=== PATIENT | male | born 1975 | race Caucasian/White ===

== ENCOUNTER 2020-07-28 14:05 | Emergency (ER) | payer SELFPAY ==
[2020-07-28] MEDS ORDERED: KETOROLAC 30 MG/ML INJ ONE (15:53)
[2020-07-28] MEDS ORDERED: LIDOCAINE 4% PATCH ONE (15:53)
--- NOTE | 2020-07-28 16:13 | RAD REPORT ---
EXAM DESCRIPTION: CT - Spine Lumbar Wo Con - 07/28/2020 4:00 pm CLINICAL HISTORY: PAIN, low back pain radiating to the lower extremities COMPARISON: None. TECHNIQUE: Thin section axial imaging of the lumbar spine was performed. Sagittal and coronal recon struction images were generated and reviewed. All CT scans are performed using dose optimization technique as appropriate and may include automated exposure control or mA/KV adjustment according to patient size. FINDINGS: Lumbar bodies are normal in height and alignment. No fracture changes are seen. There are no lytic, sclerotic or expansile bony changes identifiable. No paraspinal mass identifiable. Sacral a la are intact. No significant SI joint finding. Facet joint degenerative changes are mild. Central canal detail is inherently limited. No disc herniation confirmed. Patient probably has mild d isc bulge change at L3-4 and slightly more prominent at L4-5. No central spinal stenosis or significa nt foraminal stenosis at these levels. Patient may have mild lateral recess stenosis at the superior aspect L5. No significant disc finding at L5-S1. No pars defect. No suspicious skeletal muscle or soft tissue finding. IMPRESSION: No acute vertebral body finding. No disc herniation or central spinal stenosis. Disc bulge changes are present minimally at L3-4 and L 4-5. Patient likely has a mild lateral recess stenosis at L5. This is a minimal finding but could potentia lly explain radiculopathy given the absence of additional significant finding.
--- NOTE | 2020-07-28 16:50 | ER ---
Nurse's Notes [facility] Name: John Abdi Age: 44 yrs Sex: Male : 1975 Arrival Date: 07/28/2020 Time: 14:13 Bed 26 Private MD: Diagnosis: Low back pain;Radiculopathy, lumbosacral region Presentation: 07/28 14:16 Chief complaint: Patient states: low back pain that began 1 week ago. No known injury. ss Coronavirus screen: Client denies travel out of the [place] in the last 14 days. Ebola Screen: Patient denies exposure to infectious person. Patient denies travel to an Ebola-affected area in the 21 days before illness onset. Initial Sepsis Screen: Does the patient meet any 2 criteria? No. Patient's initial sepsis screen is negative. Does the patient have a suspected source of infection? No. Patient's initial sepsis screen is negative. Risk Assessment: Do you want to hurt yourself or someone else? Patient reports no desire to harm self or others. Onset of symptoms was July 21, 2020. 14:16 Method Of Arrival: Ambulatory ss 14:16 Acuity: JARED 4 ss Historical: - Allergies: 14:17 No Known Allergies; ss - Home Meds: 14:17 None [Active]; ss - PMHx: 14:17 None; ss - PSHx: 14:17 None; ss - Immunization history:: Adult Immunizations unknown. - Social history:: Smoking status: Patient reports use of chewing tobacco. Screenin:40 Abuse screen: Denies threats or abuse. Denies injuries from another. Nutritional kg screening: No deficits noted. Tuberculosis screening: No symptoms or risk factors identified. Fall Risk None identified. No fall in past 12 months (0 pts). No secondary diagnosis (0 pts). No IV (0 pts). Ambulatory Aid- None/Bed Rest/Nurse Assist (0 pts). Gait- Normal/Bed Rest/Wheelchair (0 pts) Mental Status- Oriented to own ability (0 pts). Total Carbone Fall Scale indicates No Risk (0-24 pts). Assessment: 15:38 General: Appears uncomfortable, Behavior is calm, cooperative, appropriate for age, kg quiet. Pain: Complains of pain in left low back Pain does not radiate. Pain currently is 6 out of 10 on a pain scale. at worst was 10 out of 10 on a pain scale. level that patient reports is acceptable is 3 out of 10 on a pain scale. Quality of pain is described as burning, dull, sharp, constant Pain began One week ago. Neuro: Level of Consciousness is awake, alert, obeys commands, Oriented to person, place, time, situation, Appropriate for age. 15:40 Cardiovascular: No deficits noted. Respiratory: No deficits noted. GI: No deficits kg noted. : No deficits noted. EENT: No deficits noted. Derm: No deficits noted. Musculoskeletal: Reports pain in left low back since one week ago. Pain is 6 out of 10 on a pain scale. Vital Signs: 14:17 BP 129 / 95; Pulse 98; Resp 16; Temp 97.6(TE); Pulse Ox 99% on R/A; Weight 99.79 kg; ss Height 5 ft. 11 in. (180.34 cm); Pain 8/10; 16:00 BP 133 / 100; Pulse 90; Resp 20; Pulse Ox 99% on R/A; kg 17:04 BP 152 / 90; Pulse 81; Resp 20 S; Pulse Ox 99% on R/A; kg 14:17 Body Mass Index 30.68 (99.79 kg, 180.34 cm) ss ED Course: 14:13 Patient arrived in ED. mr 14:17 Triage completed. ss 14:17 Arm band placed on left wrist. ss 15:22 Aron Su PA is PHCP. cp 15:22 Aron Espinal MD is Attending Physician. cp 15:27 Beth Cooney, NATHALIE is Primary Nurse. kg 15:41 Patient has correct armband on for positive identification. kg 16:00 CT Lumbar Spine Wo Con In Process Unspecified. EDMS 16:49 Samy Pastor MD is Referral Physician. cp 17:04 No provider procedures requiring assistance completed. Patient did not have IV access kg during this emergency room visit. Administered Medications: 15:37 Drug: Lidoderm 5 % (700 mg/patch) 1 patches {Note: Left lower back.} Route: Topical; kg Site: affected area; 17:06 Follow up: Response: No adverse reaction; Marked relief of symptoms kg 15:38 Drug: TORadol (ketorolac) 60 mg Route: IM; Site: left gluteus; kg 17:06 Follow up: Response: No adverse reaction; Marked relief of symptoms kg Outcome: 16:50 Discharge ordered by . flip 17:04 Discharged to home ambulatory. kg 17:04 Condition: improved 17:04 Discharge instructions given to patient, Instructed on discharge instructions, follow up and referral plans. Demonstrated understanding of instructions, follow-up care, medications, Prescriptions given X 4. 17:06 Patient left the ED. kg Signatures: Dispatcher [employer] Sherice Govea Shelby, RN RN Aron Saenz, UZAIR PA Beth Vazquez, RN RN kg
--- NOTE | 2020-07-28 16:50 | EDPHYS ---
Physician Documentation [facility] Name: John Abdi Age: 44 yrs Sex: Male : 1975 Arrival Date: 07/28/2020 Time: 14:13 Bed 26 Private MD: ED Physician Aron Espinal HPI: 07/28 15:30 This 44 yrs old Male presents to ER via Ambulatory with complaints of Back cp Pain. 15:30 The patient presents with pain that is acute, with no known mechanism of injury. cp 15:30 The symptoms are located in the low back. Onset: The symptoms/episode began/occurred 1 cp week(s) ago. intermittent radiation of pain down back left leg. Associated signs and symptoms: Pertinent negatives: abdominal pain, constipation, fever, incontinence, numbness, tingling, urinary retention, weakness. The problem was sustained from unknown cause. Modifying factors: the patient symptoms are aggravated by bending, sitting. Severity of symptoms: in the emergency department the symptoms are unchanged, despite home interventions. Historical: - Allergies: 14:17 No Known Allergies; ss - Home Meds: 14:17 None [Active]; ss - PMHx: 14:17 None; ss - PSHx: 14:17 None; ss - Immunization history:: Adult Immunizations unknown. - Social history:: Smoking status: Patient reports use of chewing tobacco. ROS: 15:35 Constitutional: Negative for body aches, chills, fever, poor PO intake. cp 15:35 Eyes: Negative for injury, pain, redness, and discharge. cp 15:35 ENT: Negative for ear pain, sore throat. 15:35 Cardiovascular: Negative for chest pain. 15:35 Respiratory: Negative for cough, shortness of breath. 15:35 Abdomen/GI: Negative for abdominal pain, nausea, vomiting, and diarrhea, bowel incontinence. 15:35 Back: Positive for pain at rest, pain with movement, of the lumbar area and left low back. 15:35 : Negative for urinary symptoms, bladder incontinence, testicular pain 15:35 Neuro: Negative for altered mental status, headache, numbness, weakness. 15:35 All other systems are negative. Exam: 15:40 Constitutional: The patient appears in no acute distress, alert, awake, non-toxic, well cp developed, well nourished, uncomfortable. 15:40 Head/Face: Normocephalic, atraumatic. cp 15:40 Eyes: Periorbital structures: appear normal, Conjunctiva: normal, no exudate, no injection, Sclera: no appreciated abnormality, Lids and lashes: appear normal, bilaterally. 15:40 ENT: External ear(s): are unremarkable, Nose: is normal, Mouth: Lips: moist, Oral mucosa: moist, Posterior pharynx: Airway: no evidence of obstruction, patent. 15:40 Neck: ROM/movement: is normal, is supple, without pain, no range of motions limitations. 15:40 Chest/axilla: Inspection: normal, Palpation: is normal, no crepitus, no tenderness. 15:40 Cardiovascular: Rate: normal. 15:40 Respiratory: the patient does not display signs of respiratory distress, Respirations: normal, no use of accessory muscles, no retractions, labored breathing, is not present. 15:40 Abdomen/GI: Inspection: abdomen appears normal, Palpation: abdomen is soft and non-tender, in all quadrants. 15:40 Back: pain, that is moderate, of the lumbar area and left low back, ROM is painful, with all movement, Straight leg raises: of both lower extremities does not illicit pain. 15:40 Neuro: Motor: moves all fours, strength is normal, Sensation: is normal, Gait: is steady, Deep tendon reflexes are 2+ (normal) in the right patellar, right Achilles, left patellar and left Achilles. Vital Signs: 14:17 BP 129 / 95; Pulse 98; Resp 16; Temp 97.6(TE); Pulse Ox 99% on R/A; Weight 99.79 kg; ss Height 5 ft. 11 in. (180.34 cm); Pain 8/10; 16:00 BP 133 / 100; Pulse 90; Resp 20; Pulse Ox 99% on R/A; kg 17:04 BP 152 / 90; Pulse 81; Resp 20 S; Pulse Ox 99% on R/A; kg 14:17 Body Mass Index 30.68 (99.79 kg, 180.34 cm) ss MDM: 15:22 Patient medically screened. cp 16:00 Differential diagnosis: Ureterolithiasis vertebral fracture, sciatica, cauda equina, cp spinal stenosis. 16:50 Counseling: I had a detailed discussion with the patient and/or guardian regarding: the cp presence of at least one elevated blood pressure reading (>120/80) during this emergency department visit, radiology results, the need for outpatient follow up, a neurosurgeon, to return to the emergency department if symptoms worsen or persist or if there are any questions or concerns that arise at home. 16:50 Response to treatment: the patient's symptoms have markedly improved after treatment, cp VSS. Pain improved. Will discharge to home with return precautions given worsening pain, saddle anesthesia, bowel/bladder incontinence. 16:55 Data reviewed: vital signs, nurses notes, radiologic studies. cp 16:55 ED course: No results found on inquiry of [employer] prescription monitor program website. cp 07/28 15:26 Order name: CT Lumbar Spine Wo Con; Complete Time: 16:15 cp 07/28 16:16 Interpretation: Report reviewed. cp Administered Medications: 15:37 Drug: Lidoderm 5 % (700 mg/patch) 1 patches {Note: Left lower back.} Route: Topical; kg Site: affected area; 17:06 Follow up: Response: No adverse reaction; Marked relief of symptoms kg 15:38 Drug: TORadol (ketorolac) 60 mg Route: IM; Site: left gluteus; kg 17:06 Follow up: Response: No adverse reaction; Marked relief of symptoms kg Disposition: 07/29 07:09 Co-signature as Attending Physician, Aron Espinal MD I agree with the assessment and norah plan of care. Disposition: 07/28/20 16:50 Discharged to Home. Impression: Low back pain, Radiculopathy, lumbosacral region. - Condition is Stable. - Discharge Instructions: Back Pain, Adult, Lumbosacral Radiculopathy, Back Exercises. - Prescriptions for Cyclobenzaprine 10 mg Oral Tablet - take 1 tablet by ORAL route every 8 hours As needed no driving while taking medication; 20 tablet. Medrol (Paul) 4 mg Oral Tablets, Dose Pack - take 1 tablet by ORAL route as directed - follow package instructions; 1 packet. Tramadol 50 mg Oral Tablet - take 1 tablet by ORAL route every 8 hours as needed; 12 tablet. Lidoderm 5 % Topical adhesive patch,medicated - apply 1 patch by TRANSDERMAL route once daily; 1 box. - Medication Reconciliation Form, Thank You Letter, Antibiotic Education, Prescription Opioid Use form. - Follow up: Samy Pastor MD; When: 1 week; Reason: Recheck today's complaints. - Problem is new. - Symptoms have improved. Signatures: Dispatcher [employer] EDAron Lamar MD MD cha Smirch, Shelby, RN RN ss Aron Su PA PA cp Beth Cooney, NATHALIE RN kg Corrections: (The following items were deleted from the chart) 07/28 17:06 16:50 07/28/2020 16:50 Discharged to Home. Impression: Low back pain; Radiculopathy, kg lumbosacral region. Condition is Stable. Forms are Medication Reconciliation Form, Thank You Letter, Antibiotic Education, Prescription Opioid Use. Follow up: Samy Pastor; When: 1 week; Reason: Recheck today's complaints. Problem is new. Symptoms have improved. cp
[2020-07-28 17:38] VITALS: TEMP 97.6; O2SAT 99
[2020-07-28 17:41] VITALS: BP 152/90
== END 2020-07-28 17:06 | disposition home or self-care (01) ==
LOC: ER 14:05
DX: M54.17 Radiculopathy, lumbosacral region (principal); F17.220 Nicotine dependence, chewing tobacco, uncomplicated
CPT/HCPCS: 72131; 96372; 99283